=== PATIENT | female | born 1985 | race Caucasian/White ===

== ENCOUNTER 2024-05-18 10:08 | Observation (INO) | payer BC, SELFPAY ==
[2024-05-18] VITALS (42 sets, daily range): BP systolic 94–129; BP diastolic 57–95; PULSE 61–87; RESP 13–20; TEMP 36.4–36.8; O2SAT 89–100; BMI 35.2
--- NOTE | 2024-05-18 10:33 | W.ED.GENAD ---
Discharge Plan Disposition Patient Disposition: Admit to [facility] Condition: Stable Discharge Details Chief Complaint: Abd Prob Clinical Impression: Peptic ulcer disease Attending Provider: Juan Peña Primary Care Provider: Titi Pierson ED Provider: Ponce Cardona Home Meds and New Rx's Prescriptions: No Action omeprazole 20 mg tablet,delayed release (DR/EC) 40 mg PO DAILY ondansetron 4 mg tablet,disintegrating 4 mg PO Q6H acyclovir 400 mg tablet 400 mg PO BID albuterol sulfate 90 mcg/actuation aerosol powdr breath activated 2 inh inhalation Q4H PRN fluticasone propion-salmeterol 232-14 mcg/actuation aero powdr breath act w/sensor 2 inh inhalation BID [id number]-algal oil [Foltanx RF] 3 mg-35 mg-2 mg -90.314 mg capsule 1 cap PO ONCE levalbuterol HCl 1.25 mg/3 mL solution for nebulization 1.25 mg inhalation TID Rx Instructions: for up to 3 doses magnesium oxide 500 mg capsule 500 mg PO DAILY methylphenidate HCl 27 mg tablet extended release 24hr 27 mg PO QAM montelukast [Singulair] 10 mg tablet 10 mg PO DAILY cetirizine [All Day Allergy (cetirizine)] 10 mg tablet 10 mg PO ONCE Ubrelvy 100 mg tablet 100 mg PO ONCE PRN Rx Instructions: as a single dose HPI General Date/Time Provider Initiated Documentation: 05/18/24 10:25. HPI Narrative: 38 year-old female presents to ED today by POV/ambulating with her mother with a chief complaint of continued epigastric/RUQ abdominal pain, sometimes associated with immediate pain after PO intake- seen x2 at [facility] the past [address], had mild anemia HgB in 10's at [facility]. Quality described as epigastric pain, nausea, no radiation to active vomiting, black/bloody stools, coffee-ground emesis, fevers. Severity is described as severe. Palliating factors include had doubled her dose of PPI after her first ER visit days ago. Provoking factors include nothing specific. Events leading up to the incident/Associated Symptoms: Patient denies history of abdominal surgeries. Patient not anticoagulated. Related Data Home Medications ?Medication ?Instructions ?Recorded ?Confirmed acyclovir 400 mg tablet 400 mg PO BID 05/18/24 05/18/24 albuterol sulfate 90 mcg/actuation 2 inh inhalation Q4H PRN 05/18/24 05/18/24 breath activated powder inhaler cetirizine 10 mg tablet (All Day 10 mg PO ONCE 05/18/24 05/18/24 Allergy (cetirizine)) fluticasone 232mcg-salmeterol 2 inh inhalation BID 05/18/24 05/18/24 14mcg/actuation breath act,powder sensor levalbuterol HCl 1.25 mg/3 mL 1.25 mg inhalation TID 05/18/24 05/18/24 solution for nebulization levomefolate Ca 3 mg-B6 35 1 cap PO ONCE 05/18/24 05/18/24 mg-meB12 2 mg-algal oil 90.314 mg capsule (Foltanx RF) magnesium oxide 500 mg capsule 500 mg PO DAILY 05/18/24 05/18/24 methylphenidate HCl 27 mg 27 mg PO QAM 05/18/24 05/18/24 tablet,extended release 24 hr montelukast 10 mg tablet 10 mg PO DAILY 05/18/24 05/18/24 (Singulair) omeprazole 20 mg tablet,delayed 40 mg PO DAILY 05/18/24 05/18/24 release ondansetron 4 mg disintegrating 4 mg PO Q6H 05/18/24 05/18/24 tablet ubrogepant 100 mg tablet (Ubrelvy) 100 mg PO ONCE PRN 05/18/24 05/18/24 Allergies Allergy/AdvReac Type Severity Reaction Status Date / Time No Known Allergies Allergy Unverified 05/18/24 10:24 General Stated Complaint: Abd Prob ALFONSO: 3 Review of Systems All systems reviewed & are unremarkable except as noted in HPI and below Exam Narrative Exam Narrative: GENERAL APPEARANCE: Well-nourished, non-toxic, awake and alert, atraumatic, no acute distress. SKIN: Warm, pink, dry, intact, without rashes/lesions/ulcerations. HEAD: Normocephalic, atraumatic, normal hair distribution for gender/age. EYES: Normal conjunctiva, no exudates on lids/lashes. ENT: Nares patent, no circumoral cyanosis, no facial swelling NECK: Supple, trachea midline, painless cervical ROM. LUNGS/CHEST: Lungs CTA bilaterally-no rhonchi/rales/wheezes diffusely, non-labored respirations, normal A/P diameter, symmetrical expansion, no chest wall deformity HEART (CV/PV): Regular rate and rhythm without murmur, no peripheral edema, no JVD. ABDOMEN: Soft, non-distended, no guarding, epigastric tenderness, right upper quadrant tenderness with Win sign, no Rovsing's, no McBurney's point tenderness, no CVA tenderness percussion bilaterally. MSK: Normal ROM, no swelling/deformity to bilateral UEs or LEs, moving all extremities without weakness, no cyanosis, spine midline without tenderness, normal curvature. NEURO: Mental Status AAOx4 - alert to person, place, time, events No facial droop, no forehead involvement. Motor: No focal weakness - strength 5/5 in bilateral UEs and LEs, proximal and distal, symmetric. Sensory: sensation intact to light touch globally. Gait normal: patient ambulated without ataxia into ED room. PSYCH: euthymic, cooperative, pleasant, appropriate speech Course Vital Signs Vital signs: Vital Signs Temperature 36.5 C 05/18/24 10:20 Pulse 77 05/18/24 10:20 Respiratory Rate 14 05/18/24 10:20 Blood Pressure 113/84 05/18/24 10:20 Pulse Oximetry 99 05/18/24 10:20 Temperature 36.5 C 05/18/24 10:20 Temperature Source Oral 05/18/24 10:20 Pulse 77 05/18/24 10:20 Respiratory Rate 14 05/18/24 10:20 Blood Pressure 113/84 05/18/24 10:20 Blood Pressure Position Sitting 05/18/24 10:20 Pulse Oximetry 99 05/18/24 10:20 Oxygen Delivery Method Room Air 05/18/24 10:20 Oxygen Flow Rate 0 05/18/24 10:20 Pain Level 6 05/18/24 10:20 Medical Decision Making This dictation utilizes [id number] dictation software and may contain unedited grammatical errors. 38 year-old female presents to ED today by POV/ambulating with her mother with a chief complaint of continued epigastric/RUQ abdominal pain, sometimes associated with immediate pain after PO intake- seen x2 at [facility] the past [address], had mild anemia HgB in 10's at [facility]. Quality described as epigastric pain, nausea, no radiation to active vomiting, black/bloody stools, coffee-ground emesis, fevers. Severity is described as severe. Palliating factors include had doubled her dose of PPI after her first ER visit days ago. Provoking factors include nothing specific. Events leading up to the incident/Associated Symptoms: Patient denies history of abdominal surgeries. Patients' medical history: Noncontributory. Family and social history: States family history of cholecystectomy, otherwise noncontributory Pertinent exam findings / vital signs include epigastric tenderness, right upper quadrant tenderness, no Rovsing's, no McBurney's point tenderness, positive Win sign, benign cardiopulmonary status, nontoxic and afebrile. Differential / pathologies of concern include gastritis, peptic ulcer disease, pancreatitis, cholecystitis, GI bleeding, renal colic. Diagnostic studies of: -CBC, CMP, magnesium, lipase, troponin, UA, ultrasound of the right upper quadrant and renal study. -CBC shows worsening anemia, was 10 at [facility] yesterday now 9.6, recheck after 1 L fluid shows 8.1 likely GI bleeding -CMP has no actionable abnormality -Lipase within normal limits -Troponin negative -UA unremarkable -US shows no gallstones, shows 3-4mm kidney stone nonobstructing Interventions of: -IV Tylenol, Toradol, ondansetron, 40 mg IV Protonix, 1 dose of 4 mg morphine. ED Course/Assessment/Plan: 38-year-old female presents with epigastric pain ongoing for few days, states it is severe and sometimes associated with eating. She does have noted anemia yesterday at [facility] which is worsening today and after a recheck after IV fluid bolus drops 1.5 g indicating likely GI bleeding, or presentation is consistent with peptic ulcer disease, I did speak with surgery on-call Dr. Peña who accepted the patient for admission at 1400 hrs and we will EGD her today. Disposition of Peptic Ulcer Disease. Patient verbalized understanding of the plan and return to ED criteria and engaged in shared decision making. Medical Records Medical records reviewed: Yes I reviewed the patient's medical records. Imaging Data Radiologic Study: Attestation: I personally reviewed and interpreted this imaging study as follows: Imaging: Ultrasound Radiologist's impression: EXAM: US ABDOMEN RENAL CLINICAL HISTORY: RUQ tenderness; gall vs renal colic TECHNIQUE: Ultrasound of complete upper abdomen performed using standard protocol. COMPARISON: No exams were available for comparison FINDINGS: There is no ascites evident. LIVER: Liver is mildly echogenic indicating mild hepatic steatosis. There no discrete focal hepatic lesions evident. GALLBLADDER/BILIARY: There are no gallstones. No gallbladder wall edema nor pericholecystic fluid. The common hepatic duct isnot dilated, measuring 3-4mm at the level of carlota hepatis. PANCREAS: There is no evidence of pancreatic mass nor dilatation of the pancreatic duct. SPLEEN: The spleen is not enlarged and there are no intrasplenic lesions evident. KIDNEYS:Kidneys exhibit normal size with no evidence of solid mass, or cyst. There is a 3-4 mm echogenic focus at the mid aspect of the right kidney which is probably a small nonobstructive calculus.. There is no hydronephrosis. ABDOMINAL AORTA: There is no evidence of abdominal aortic aneurysm. IVC: Normal diameter where visualized. IMPRESSION: 1. No evidence of cholelithiasis nor dilatation of the biliary tree. 2. There is a 3 millimeter hyperechoic focus in the midpole level of the right kidney which is probably a nonobstructive small calculus at this level. 3. There is no ascites. Lab Data Lab results reviewed: Yes I reviewed the patient's lab results. Labs: Laboratory Tests Range/Units 05/18/24 05/18/24 05/18/24 10:40 11:25 13:25 WBC (4.4-10.8) 10^3/uL 8.48 RBC (3.93-5.22) 10^6/uL 4.78 Hgb (11.2-15.7) g/dL 9.6 L 8.1 L Hct (36.0-46.0) % 33.5 L 27.9 L MCV (80-95) fL 70 L MCH (27.0-33.0) pg 20.1 L MCHC (32.0-36.0) % 28.7 L RDW (11.7-14.6) % 17.7 H Plt Count (130-400) 10^3/uL 321 MPV (8.0-11.0) fL 10.4 Immature Gran % % 0.4 Neutrophils % % 73.8 Lymphocytes % % 19.9 Monocytes % % 5.0 Eosinophils % % 0.5 Basophils % % 0.4 Nucleated RBC % (0.0-0.3) % 0.0 Absolute Neutrophils (1.2-6.7) 10^3/uL 6.27 Absolute Lymphocytes (1.2-3.4) 10^3/uL 1.69 Absolute Monocytes (0.1-0.8) 10^3/uL 0.42 Absolute Eosinophils (0.0-0.7) 10^3/uL 0.04 Absolute Basophils (0.0-0.2) 10^3/uL 0.03 RBC Morphology See Below Poikilocytosis 1+ Microcytosis 2+ Sodium (136-145) mmol/L 140 Potassium (3.5-5.1) mmol/L 3.9 Chloride (98-107) mmol/L 105 Carbon Dioxide (21.0-32.0) mmol/L 26.3 Anion Gap (3-11) mmol/L 8.7 BUN (7-18) mg/dL 12 Creatinine (0.55-1.02) mg/dL 0.8 Est GFR (CKD-EPI 2020) (mL/min/1.73m2) 96.66 Glucose (74-106) mg/dL 94 Calcium (8.5-10.1) mg/dL 9.2 Magnesium (1.8-2.4) mg/dL 2.1 Total Bilirubin (0.2-1.0) mg/dL 0.31 AST (15-37) U/L 17 ALT (14-59) U/L 26 Alkaline Phosphatase (46-116) U/L 88 Troponin I (<or=51) ng/L < 4 Total Protein (6.4-8.2) g/dL 8.4 H Albumin (3.4-5.0) g/dL 4.2 Lipase (<78) U/L 38 Urine Color (Yellow) Yellow Urine Clarity (Clear) Clear Urine pH (5-8) 5.5 Ur Specific [place] (1.005-1.025) >= 1.030 H Urine Protein (Neg-Trace) mg/dL Negative Urine Ketones (Negative) mg/dL Negative Urine Blood (Negative) Negative Urine Nitrite (Negative) Negative Urine Bilirubin (Negative) Negative Urine Urobilinogen (Up to 0.2) mg/dL 0.2 Ur Leukocyte Esterase (Negative) Negative Urine Glucose (Negative) mg/dL Negative Quality:SDOH Health Related Social Needs: No Data to Display PFSH All Active Problems (Updated 05/18/24 @ 15:02 by MARLEE Atkinson) Peptic ulcer disease (Chronic) Social History Smoking/Tobacco Use Status: Never Smoking risk assessment performed?: Yes Alcohol Intake: never Drug use: Never Substance use type: does not use Housing: house Do you feel safe at home: Yes Do you feel safe in your relationship?: Yes
--- NOTE | 2024-05-18 10:45 | DI.US_ITS ---
Exam(s) US ABDOMEN RENAL EXAM: US ABDOMEN RENAL CLINICAL HISTORY: RUQ tenderness; gall vs renal colic TECHNIQUE: Ultrasound of complete upper abdomen performed using standard protocol. COMPARISON: No exams were available for comparison FINDINGS: There is no ascites evident. LIVER: Liver is mildly echogenic indicating mild hepatic steatosis. There no discrete focal hepatic lesions evident. GALLBLADDER/BILIARY: There are no gallstones. No gallbladder wall edema nor pericholecystic fluid. The common hepatic duct isnot dilated, measuring 3-4mm at the level of carlota hepatis. PANCREAS: There is no evidence of pancreatic mass nor dilatation of the pancreatic duct. SPLEEN: The spleen is not enlarged and there are no intrasplenic lesions evident. KIDNEYS:Kidneys exhibit normal size with no evidence of solid mass, or cyst. There is a 3-4 mm echog enic focus at the mid aspect of the right kidney which is probably a small nonobstructive calculus.. There is no hydronephrosis. ABDOMINAL AORTA: There is no evidence of abdominal aortic aneurysm. IVC: Normal diameter where visualized. IMPRESSION: 1. No evidence of cholelithiasis nor dilatation of the biliary tree. 2. There is a 3 millimeter hyperechoic focus in the midpole level of the right kidney which is proba kimber a nonobstructive small calculus at this level. 3. There is no ascites. DATA REPOSITORY:
[2024-05-18 11:26] LABS: Bilirubin Negative (Negative); Blood Negative (Negative); Clarity Clear (Clear); Glucose Negative (Negative); Ketones Negative (Negative); Leukocyte Esterase Negative (Negative); Nitrite Negative (Negative); Specific Gravity >= 1.030 (1.005-1.025); Urobilinogen 0.2 mg/dL (Up to 0.2); pH 5.5 (5-8)
[2024-05-18] MEDS: Ondansetron 4 MG/2 ML VIAL IVP (11:31)
[2024-05-18] MEDS: Pantoprazole 40 MG VIAL IVP ×2 (11:32→18:13)
[2024-05-18] MEDS: Ketorolac 15 MG/ML VIAL IVP (11:32)
[2024-05-18 11:38] LABS: Abs Immature Grans 0.03 10^3/uL (0.0-0.06); Absolute Basophil Count 0.03 10^3/uL (0.0-0.2); Absolute Eosinophil Count 0.04 10^3/uL (0.0-0.7); Absolute Lymphocyte Count 1.69 10^3/uL (1.2-3.4); Absolute Monocyte Count 0.42 10^3/uL (0.1-0.8); Absolute Neutrophil Count 6.27 10^3/uL (1.2-6.7); Basophils % 0.4 %; Eosinophils % 0.5 %; HCT 33.5 % (36.0-46.0); HGB 9.6 g/dL (11.2-15.7); Immature Grans % 0.4 %; Lymphocytes % 19.9 %; MCH 20.1 pg (27.0-33.0); MCHC 28.7 % (32.0-36.0); MCV 70 fL (80-95); MPV 10.4 fL (8.0-11.0); Neutrophils % 73.8 %; Platelet Count 321 10^3/uL (130-400); RBC 4.78 10^6/uL (3.93-5.22); RDW 17.7 % (11.7-14.6); RDW-SD 44.7 fL; WBC 8.48 10^3/uL (4.4-10.8)
[2024-05-18] MEDS: ACETAMINOPHEN 1,000 MG/100 ML BAG 400 MG IVPB (11:38)
[2024-05-18 11:54] LABS: ALT 26 U/L (14-59); AST 17 U/L (15-37); Albumin 4.2 g/dL (3.4-5.0); Alkaline Phosphatase 88 U/L (46-116); Anion Gap 8.7 mmol/L (3-11); BUN 12 mg/dL (7-18); Bilirubin, Total 0.31 mg/dL (0.2-1.0); CO2 26.3 mmol/L (21.0-32.0); CREATININE 0.8 mg/dL (0.55-1.02); Calcium 9.2 mg/dL (8.5-10.1); Chloride 105 mmol/L (98-107); Estimated GFR 96.66 (mL/min/1.73m2); Glucose 94 mg/dL (74-106); Lipase 38 U/L (<78); Magnesium 2.1 mg/dL (1.8-2.4); Potassium 3.9 mmol/L (3.5-5.1); Sodium 140 mmol/L (136-145); Total Protein 8.4 g/dL (6.4-8.2)
[2024-05-18 11:55] LABS: Troponin I < 4 ng/L (<or=51)
[2024-05-18 12:07] LABS: Diff Comment RBC Morph Reviewed; Microcytosis 2+; Poikilocytes 1+
[2024-05-18] MEDS: Normal Saline 1,000 ML 1000 ML IV (12:24)
[2024-05-18 13:29] LABS: HCT 27.9 % (36.0-46.0); HGB 8.1 g/dL (11.2-15.7)
--- NOTE | 2024-05-18 14:18 | W.PM.HP.N ---
Date of service: 05/18/24 Time of Service: 14:18 Assessment and Plan Assessment and plan (1) Peptic ulcer disease: Status: Chronic Assessment and plan: In light of her symptoms of midepigastric pain, and back pain, coinciding with a decreasing hemoglobin, I think peptic ulcer disease and gastritis are very likely here. We talked about typical management approaches to that, which would include proton pump inhibitor therapy, will up with the following hemoglobin I think EGD to rule out any active bleeding ulcer is very reasonable. We talked about the risks and benefits of the procedure, and the intent to diagnose, and hopefully treat bleeding peptic ulcer with clips or injections. I think Jodee has a very good understanding of the nature of the procedure and the risks. She is able to provide informed consent today, and we will work to arrange this in an urgent fashion. History of Present Illness History of Present Illness Chief Complaint: Midepigastric abdominal pain Narrative: Jodee is 38 years old. She comes to the emergency department today with increasing midepigastric and back pain. She was actually seen in the emergency department at [facility] on the and the with similar symptoms, although less intense at that time. She underwent a CT scan that demonstrated some mesenteric adenitis, and some possible colitis, but was otherwise negative. Her hemoglobin during her first ER visit was about 10-1/2. It decreased about a gram by her second visit, and in the emergency department here today, the hemoglobin is 8.1. She denies any melena or hematochezia. She has had some nausea and vomiting but no hematemesis. She has longstanding GERD symptoms, and has actually undergone EGD and colonoscopy in the past. To the best of her knowledge they may have had some polyps, but otherwise were normal. She is maintained on 20 mg of omeprazole on a usual basis, which she did double that dose at the recommendation of [facility] emergency department. That has not helped her symptoms. She has multiple sick contacts over the past few weeks, including a daughter with pinworms, and what sounds like a few family members with nonspecific gastroenteritis. Past surgical history significant for section. She tells me she has a family history of malignant hyperthermia, and colon cancer. She has never had any complications with anesthesia herself. Review of Systems Constitutional Constitutional: Reports fatigue, Denies fever(s) and Reports poor appetite Eyes Eyes: Reports system reviewed and no additional complaints, except as documented ENT Ears, Nose, Mouth, and Throat: Reports system reviewed and no additional complaints, except as documented Cardiovascular Cardiovascular: Denies chest pain Respiratory Respiratory: Denies chest congestion and Denies cough Gastrointestinal Gastrointestinal: Reports abdominal pain, Reports change in stool character, Reports cramping, Reports dyspepsia, Reports nausea and Reports vomiting Genitourinary Genitourinary: Reports system reviewed and no additional complaints, except as documented Musculoskeletal Musculoskeletal: Reports back pain Endocrine Endocrine: Reports fatigue Hematologic/Lymphatic Hematologic/Lymphatic: Denies easy bleeding and Denies easy bruising PFSH All Active Problems (Updated 05/18/24 @ 15:02 by MARLEE Atkinson) Peptic ulcer disease (Chronic) Social History Smoking/Tobacco Use Status: Never Smoking risk assessment performed?: Yes Alcohol Intake: never Drug use: Never Substance use type: does not use Housing: house Do you feel safe at home: Yes Do you feel safe in your relationship?: Yes Meds Allergies and Home Medications Allergies Allergy/AdvReac Type Severity Reaction Status Date / Time No Known Allergies Allergy Unverified 05/18/24 10:24 Home Medications ?Medication ?Instructions ?Recorded ?Confirmed ?Type acyclovir 400 mg tablet 400 mg PO BID 05/18/24 05/18/24 History albuterol sulfate 90 mcg/actuation 2 inh inhalation Q4H PRN 05/18/24 05/18/24 History breath activated powder inhaler cetirizine 10 mg tablet (All Day 10 mg PO ONCE 05/18/24 05/18/24 History Allergy (cetirizine)) fluticasone 232mcg-salmeterol 2 inh inhalation BID 05/18/24 05/18/24 History 14mcg/actuation breath act,powder sensor levalbuterol HCl 1.25 mg/3 mL 1.25 mg inhalation TID 05/18/24 05/18/24 History solution for nebulization levomefolate Ca 3 mg-B6 35 1 cap PO ONCE 05/18/24 05/18/24 History mg-meB12 2 mg-algal oil 90.314 mg capsule (Foltanx RF) magnesium oxide 500 mg capsule 500 mg PO DAILY 05/18/24 05/18/24 History methylphenidate HCl 27 mg 27 mg PO QAM 05/18/24 05/18/24 History tablet,extended release 24 hr montelukast 10 mg tablet 10 mg PO DAILY 05/18/24 05/18/24 History (Singulair) omeprazole 20 mg tablet,delayed 40 mg PO DAILY 05/18/24 05/18/24 History release ondansetron 4 mg disintegrating 4 mg PO Q6H 05/18/24 05/18/24 History tablet ubrogepant 100 mg tablet (Ubrelvy) 100 mg PO ONCE PRN 05/18/24 05/18/24 History Exam Const General: cooperative and comfortable Orientation: alert, awake and oriented x3 HENMT Head: normal to inspection Neck Neck: normal visual inspection, full ROM and no lymphadenopathy Resp Effort & Inspection: no cough Auscultation: clear to auscultation bilaterally Cardio Rate: regular rate Rhythm: regular rhythm Heart Sounds: S1 normal and S2 normal GI Inspection: normal to inspection Palpation: soft, no guarding, no hernias, no masses and tender (Midepigastric) Results Labs 05/18/24 13:25 05/18/24 11:25 Labs: Laboratory Results - last 24 hr 05/18/24 05/18/24 05/18/24 10:40 11:25 13:25 WBC 8.48 RBC 4.78 Hgb 9.6 L 8.1 L Hct 33.5 L 27.9 L MCV 70 L MCH 20.1 L MCHC 28.7 L RDW 17.7 H Plt Count 321 MPV 10.4 Immature Gran % 0.4 Neutrophils % 73.8 Lymphocytes % 19.9 Monocytes % 5.0 Eosinophils % 0.5 Basophils % 0.4 Nucleated RBC % 0.0 Absolute Neutrophils 6.27 Absolute Lymphocytes 1.69 Absolute Monocytes 0.42 Absolute Eosinophils 0.04 Absolute Basophils 0.03 RBC Morphology See Below Poikilocytosis 1+ Microcytosis 2+ Sodium 140 Potassium 3.9 Chloride 105 Carbon Dioxide 26.3 Anion Gap 8.7 BUN 12 Creatinine 0.8 Est GFR (CKD-EPI 2020) 96.66 Glucose 94 Calcium 9.2 Magnesium 2.1 Total Bilirubin 0.31 AST 17 ALT 26 Alkaline Phosphatase 88 Troponin I < 4 Total Protein 8.4 H Albumin 4.2 Lipase 38 Urine Color Yellow Urine Clarity Clear Urine pH 5.5 Ur Specific [place] >= 1.030 H Urine Protein Negative Urine Ketones Negative Urine Blood Negative Urine Nitrite Negative Urine Bilirubin Negative Urine Urobilinogen 0.2 Ur Leukocyte Esterase Negative Urine Glucose Negative Last Vital Signs Temp 97.7 F 05/18/24 10:20 Pulse 70 05/18/24 13:40 Resp 14 05/18/24 10:20 BP 129/85 05/18/24 13:30 Pulse Ox 100 05/18/24 13:40 Time Spent Time spent with Patient: 40-54 minutes Time was spent: preparing to see the patient(eg.review tests), ordering medications,tests, procedures, referring, communicating with other health childcare director, indepentently interpreting results, counseling the patient and care coordination
--- NOTE | 2024-05-18 14:32 | ANES.PREOP_ITS ---
General Info Date of Service Date Performed: 05/18/24 Height: 5 ft 4 in Weight: 92.986 kg Body Mass Index (BMI): 35.2 Meds Allergies and Home Medications Allergies Allergy/AdvReac Type Severity Reaction Status Date / Time No Known Allergies Allergy Unverified 05/18/24 10:24 Home Medication ?Medication ?Instructions ?Recorded acyclovir 400 mg tablet 400 mg PO BID 05/18/24 albuterol sulfate 90 mcg/actuation 2 inh inhalation Q4H PRN 05/18/24 breath activated powder inhaler cetirizine 10 mg tablet (All Day 10 mg PO ONCE 05/18/24 Allergy (cetirizine)) fluticasone 232mcg-salmeterol 2 inh inhalation BID 05/18/24 14mcg/actuation breath act,powder sensor levalbuterol HCl 1.25 mg/3 mL 1.25 mg inhalation TID 05/18/24 solution for nebulization levomefolate Ca 3 mg-B6 35 1 cap PO ONCE 05/18/24 mg-meB12 2 mg-algal oil 90.314 mg capsule (Foltanx RF) magnesium oxide 500 mg capsule 500 mg PO DAILY 05/18/24 methylphenidate HCl 27 mg 27 mg PO QAM 05/18/24 tablet,extended release 24 hr montelukast 10 mg tablet 10 mg PO DAILY 05/18/24 (Singulair) omeprazole 20 mg tablet,delayed 40 mg PO DAILY 05/18/24 release ondansetron 4 mg disintegrating 4 mg PO Q6H 05/18/24 tablet ubrogepant 100 mg tablet (Ubrelvy) 100 mg PO ONCE PRN 05/18/24 PFSH Active Problems Active Problems: Problem Status Onset Code Peptic ulcer disease Chronic K27.9 Tobacco Smoking/Tobacco Use Status: Never Alcohol Alcohol Intake: never Substance Use Substance use: Never Substance use type: does not use Vital Signs and Lab Results Vital Signs Most Recent Vital Signs in EMR: Most Recent Vital Signs Temp Pulse Resp BP Pulse Ox 36.5 C 70 14 129/85 100 05/18/24 10:20 05/18/24 13:40 05/18/24 10:20 05/18/24 13:30 05/18/24 13:40 Lab Results 05/18/24 13:25 05/18/24 11:25 Blood Type / Crossmatch: 2 No Data to Display Complete Blood Count: 2 White Blood Count 8.48 10^3/uL (4.4-10.8) 05/18/24 11:25 Red Blood Count 4.78 10^6/uL (3.93-5.22) 05/18/24 11:25 Hemoglobin 8.1 g/dL (11.2-15.7) L 05/18/24 13:25 Hematocrit 27.9 % (36.0-46.0) L 05/18/24 13:25 Platelet Count 321 10^3/uL (130-400) 05/18/24 11:25 Complete Metabolic Panel: 2 Sodium 140 mmol/L (136-145) 05/18/24 11:25 Potassium 3.9 mmol/L (3.5-5.1) 05/18/24 11:25 Chloride 105 mmol/L (98-107) 05/18/24 11:25 Carbon Dioxide 26.3 mmol/L (21.0-32.0) 05/18/24 11:25 BUN 12 mg/dL (7-18) 05/18/24 11:25 Creatinine 0.8 mg/dL (0.55-1.02) 05/18/24 11:25 Est GFR (CKD-EPI 2020) 96.66 (mL/min/1.73m2) 05/18/24 11:25 Magnesium 2.1 mg/dL (1.8-2.4) 05/18/24 11:25 Calcium 9.2 mg/dL (8.5-10.1) 05/18/24 11:25 Albumin 4.2 g/dL (3.4-5.0) 05/18/24 11:25 Glucose 94 mg/dL (74-106) 05/18/24 11:25 Liver Function Panel: 2 Alanine Aminotransferase (ALT/SGPT) 26 U/L (14-59) 05/18/24 11: 25 Aspartate Amino Transf (AST/SGOT) 17 U/L (15-37) 05/18/24 11:25 Coagulation Panel: 2 No Data to Display Cardiac Panel: 2 Troponin I < 4 ng/L (<or=51) 05/18/24 Arterial Blood Gas: 2 No Data to Display Venous Blood Gas: 2 No Data to Display Pancreas Panel: 2 Lipase 38 U/L (<78) 05/18/24 11:25 Thyroid Panel: 2 No Data to Display Infectious Disease: 2 No Data to Display Blood Cultures: 2 No Data to Display Toxicology Panel: 2 No Data to Display Panel: 2 No Data to Display Anesthesia Assessment and Plan Anesthesia History Personal History: No History of Anesthesia Complications Family History: Malignant Hyperthermia (Grandmother and Grandmother's sister has MH) Exercise Tolerance Exercise Tolerance: Metabolic Equivalents>4 Pertinent Negatives Pertinent Negatives: Other ((+) GERD with Rx treatment) Cardiac & Pulmonary Exam Cardiac Exam: Normal S1/S2 Heart Sounds Pulmonary Exam: Clear Bilateral Breath Sounds Implantable Cardiac Device Does patient have a Pacemaker or an ICD?: No Airway Exam Known Difficult Airway: No Mallampati Class: 2 Mouth Opening: Normal (> 3cm) Thyromental Distance: Greater than 3 cm Neck Range of Motion: Full ROM Neck Circumference: Normal Teeth Condition: Normal Dentition ASA Classification ASA Score: ASA 2 Emergency Case?: No NPO Status NPO Status: NPO Clears >2 hours, Solids >8 hours Status Status: Other (Tubes tied X5 years) Anesthesia Plan Resuscitation Status: Full Code Anesthesia Technique: General Anesthesia Airway Planned: Natural Airway Monitors Used: Standard Monitors
[2024-05-18] MEDS: Lactated Ringers 1,000 ML 75 ML IV (15:00)
--- NOTE | 2024-05-18 15:50 | W.PM.ENDDOP ---
Date of service: 05/18/24 Time of Service: 15:50 Endoscopy Report DATE OF PROCEDURE: 05/18/24 PRE-OP DIAGNOSIS: Peptic ulcer disease POST-OP DIAGNOSIS: same PROCEDURE: EGD with clipping of gastric ulcer SURGEON: Juan Peña ANESTHESIA TYPE: General:No Airway PATHOLOGY: none sent COMPLICATIONS: None DISPOSITION: PACU INDICATIONS: Jodee is a 38-year-old woman with gastroesophageal reflux disease who presents with progressive dyspepsia midepigastric pain that radiates to her back, with an associated drop in her hemoglobin consistent with bleeding peptic ulcer disease PROCEDURE START TIME: 15:06 PROCEDURE END TIME: 15:15 FINDINGS: Less than 1 cm flat bleeding gastric ulcer along the greater curvature in the gastric body PROCEDURE DESCRIPTION: After the initiation of monitored anesthetic care, and with the assistance of a bite block, I advanced a standard gastroscope through the mouth past the hypopharynx and into the esophagus.? Under the direct vision of the scope, I advanced down the esophagus towards the stomach.? The upper, mid, and lower esophagus were all normal and healthy appearing. The Z-line was regular and the GE junction measured 35 cm from the incisors. I advanced the camera down into the stomach and insufflated into the rugae were obliterated. There are multiple fundic gland polyps. Most notably, however, there is a less than 0.5 cm flat bleeding gastric ulcer. This is on the greater curvature along the gastric fundus, slightly towards the cardia. This was irrigated clean. There was some active bleeding, although no visible vessel was appreciated. Narrowband imaging was used to assist with the analysis. Clinical features appeared consistent with simple gastric ulcer, as opposed to malignancy. I performed retroflexion, and the gastric cardia was totally clean. I did not see any signs of hiatal hernia. I straightened the camera, and advanced down around the incisura angularis to the warts the pylorus. The gastric antrum was normal and healthy, and I saw no evidence of any inflammation. I was able to traverse the pylorus with ease into the duodenum. Duodenal file were obvious, and healthy appearing. I saw no evidence of any blood anywhere within the duodenum. I advanced down to the second portion of the duodenum, and saw no signs of any duodenitis or features consistent with bleeding duodenal ulcers. I then brought the camera back up to the stomach. Again, the previously mentioned ulcer was examined. It was repeatedly irrigated, with a slow steady ooze. I placed 2 resolution 360 clips on each side of the ulcer, and irrigated clean. I saw no evidence of any ongoing bleeding. I then emptied the stomach, and brought the camera out along the length of the esophagus 1 last time. No other abnormalities were appreciated. Jodee was allowed awaken from the anesthetic, and transferred to the recovery unit.
--- NOTE | 2024-05-18 16:36 | W.ANESPOSTOP ---
Postoperative Evaluation Date, Time and Location Date Performed: 05/18/24 Time Performed: 16:36 Patient Location: Med/Surg Vital Signs Most Recent Imported Vital Signs: Most Recent Vital Signs Temp Pulse Resp BP Pulse Ox 36.7 C 70 20 98/66 L 100 05/18/24 16:05 05/18/24 16:15 05/18/24 16:15 05/18/24 16:15 05/18/24 16:15 Pain Score Most Recent Pain Score: Most Recent Pain Score Pain Level 0 05/18/24 16:05 Assessment Mental Status: Awake (Alert & Oriented to Patient Baseline) Airway and Respiratory Function: Patent airway with normal (patient baseline) respiratory exam Cardiovascular Function: Hemodynamically Stable Hydration Status: Adequately Hydrated Nausea & Vomiting: No Nausea or Vomiting Pain: Pt. Denies Any Pain Peripheral Nerve Block: Patient did not receive a nerve block
[2024-05-18] MEDS: Normal Saline Flush 10 ML SYR IVP ×2 (18:14→19:53)
--- NOTE | 2024-05-18 19:30 | W.PC.ACHO ---
Registration Status: Primary Language: Preferred Language: ED Information & Data Chief Complaint Abd Prob 05/18/24 10:42 Chief Complaint Abd Prob 05/18/24 10:33 Triage Note Severe upper abd pain 05/18/24 10:20 radiating to back, sx started Thursday. Bilateral sided back pain. No fever or chills. Has been to the hospital twice. Severe diarrhea. Most Recent Vital Signs Temperature 36.7 C 05/18/24 16:38 Temperature Source Temporal Artery Scan 05/18/24 16:38 Pulse 66 05/18/24 16:38 Pulse 71 05/18/24 16:15 Respiratory Rate 19 05/18/24 16:38 Blood Pressure 99/70 L 05/18/24 16:38 Blood Pressure Mean 74 05/18/24 16:15 Blood Pressure Position Sitting 05/18/24 10:20 Pulse Oximetry 100 05/18/24 16:38 Respiratory End-tidal CO2 34 05/18/24 16:15 Oxygen Delivery Method Room Air 05/18/24 16:38 Oxygen Flow Rate 0 05/18/24 16:38 Pain Level 0 05/18/24 16:05 Allergies No Known Allergies Allergy (Unverified 05/18/24 10:24) Precautions Isolation Standard precaution 05/18/24 10:42 Active Medications Generic Name Dose Route Start Last Admin Trade Name Freq PRN Reason Stop Dose Admin Pantoprazole Sodium 40 mg 05/18/24 17:30 05/18/24 18:13 Pantoprazole 40 Mg Vial IVP 40 mg DAILY ADWOA Administration Sodium Chloride 0 ml 05/18/24 16:37 05/18/24 18:14 Normal Saline Flush 10 Ml Syr IVP 10 ml PRN PRN Administration IV IV Catheter Type [Right Peripheral IV Antecubital] IV Catheter Gauge [Right 18 Antecubital] Diet Orders Category Date Time Status Regular/Normal [DIET] Nutrition 05/18/24 Dinner Active Diagnostics 05/18/24 05/18/24 05/18/24 Range/Units 13:25 11:25 10:40 WBC 8.48 (4.4-10.8) 10^3/uL RBC 4.78 (3.93-5.22) 10^6/uL Hgb 8.1 L 9.6 L (11.2-15.7) g/dL Hct 27.9 L 33.5 L (36.0-46.0) % MCV 70 L (80-95) fL MCH 20.1 L (27.0-33.0) pg MCHC 28.7 L (32.0-36.0) % RDW 17.7 H (11.7-14.6) % Plt Count 321 (130-400) 10^3/uL MPV 10.4 (8.0-11.0) fL Immature Gran % 0.4 % Neutrophils % 73.8 % Lymphocytes % 19.9 % Monocytes % 5.0 % Eosinophils % 0.5 % Basophils % 0.4 % Nucleated RBC % 0.0 (0.0-0.3) % Absolute Neutrophils 6.27 (1.2-6.7) 10^3/uL Absolute Lymphocytes 1.69 (1.2-3.4) 10^3/uL Absolute Monocytes 0.42 (0.1-0.8) 10^3/uL Absolute Eosinophils 0.04 (0.0-0.7) 10^3/uL Absolute Basophils 0.03 (0.0-0.2) 10^3/uL RBC Morphology See Below Poikilocytosis 1+ Microcytosis 2+ Sodium 140 (136-145) mmol/L Potassium 3.9 (3.5-5.1) mmol/L Chloride 105 (98-107) mmol/L Carbon Dioxide 26.3 (21.0-32.0) mmol/L Anion Gap 8.7 (3-11) mmol/L BUN 12 (7-18) mg/dL Creatinine 0.8 (0.55-1.02) mg/dL Est GFR (CKD-EPI 2020) 96.66 (mL/min/1.73m2) Glucose 94 (74-106) mg/dL Calcium 9.2 (8.5-10.1) mg/dL Magnesium 2.1 (1.8-2.4) mg/dL Total Bilirubin 0.31 (0.2-1.0) mg/dL AST 17 (15-37) U/L ALT 26 (14-59) U/L Alkaline Phosphatase 88 (46-116) U/L Troponin I < 4 (<or=51) ng/L Total Protein 8.4 H (6.4-8.2) g/dL Albumin 4.2 (3.4-5.0) g/dL Lipase 38 (<78) U/L Urine Color Yellow (Yellow) Urine Clarity Clear (Clear) Urine pH 5.5 (5-8) Ur Specific [place] >= 1.030 H (1.005-1.025) Urine Protein Negative (Neg-Trace) mg/dL Urine Ketones Negative (Negative) mg/dL Urine Blood Negative (Negative) Urine Nitrite Negative (Negative) Urine Bilirubin Negative (Negative) Urine Urobilinogen 0.2 (Up to 0.2) mg/dL Ur Leukocyte Esterase Negative (Negative) Urine Glucose Negative (Negative) mg/dL Intake and Output - 24 Hour Total 05/18/24 10:08 thru 05/18/24 18:14 Intake Total 2099 Balance 2099 Weight 92.986 kg Intake: IV 2099 Other: Emesis Description None Falls Risk Assessment History of Falls No History 05/18/24 10:42 Contributing Factors No Factors 05/18/24 10:42 Ambulatory Aids Independent 05/18/24 10:42 Tubes/Lines W/no contributing factors 05/18/24 10:42 Gait Evaluation No gait disturbance 05/18/24 10:42 Cognition No cognitive impairment 05/18/24 10:42 Fall Total Score 10 05/18/24 10:42 Level of Risk Standard/Low Risk 05/18/24 10:42 Problems Peptic ulcer disease (Chronic) v v v v v v v v v Sending and/or Receiving Nurses: Please use comment section below to note any information pertinent to the patient hand-off not included above. Information / Comments: pt recieved to MED/Surg room 227, bedside report given Report received from: Rosa Elizabeth RN
[2024-05-18] MEDS: Acyclovir 400 MG TAB PO (19:53)
[2024-05-18] MEDS: Acetaminophen 500 MG TAB 1000 MG PO (19:53)
[2024-05-18] MEDS: Budesonide/Formoterol 160/4.5 6 GM 60 PUFF INH IH (20:40)
[2024-05-19] MEDS: Acetaminophen 500 MG TAB 1000 MG PO (04:41)
[2024-05-19] MEDS: Normal Saline Flush 10 ML SYR IVP (04:41)
[2024-05-19 07:05] LABS: HGB 8.3 g/dL (11.2-15.7)
[2024-05-19 07:30] VITALS: BP 100/62; PULSE 73; RESP 16; TEMP 36.4; O2SAT 98
--- NOTE | 2024-05-19 08:20 | W.PM.DS.N ---
Date of service: 05/19/24 Time of Service: 08:20 DS: Diagnosis Discharge Diagnosis (1) Peptic ulcer disease: Status: Chronic Asessment and Plan: Chronic gastritis/peptic ulcer disease with bleeding ulcer found on upper endoscopy 05/18/2024. No biopsy was taken but fecal H. pylori antigen was obtained the morning of discharge. Patient had clipping of the bleeding ulcer. Plan is to discharge on a regular diet and Protonix twice daily. Follow-up in surgical office to check on symptoms and reduce the dose in 2 weeks. Discharge Plan Disposition Patient Disposition: Home Condition: Good Discharge Details Reason For Visit: Bleeding peptic ulcer disease Admit Date/Time: 05/18/24 15:46 Admit Provider: Juan Peña Attending Provider: Juan Peña Primary Care Provider: Titi Pierson Hospital Course Hospital Course: Patient was admitted, taken to endoscopy unit for upper endoscopy with clipping of bleeding ulcer. Patient was stable for discharge the following day having obtained a stool sample for H. pylori antigen. Home Meds and New Rx's Prescriptions: New acetaminophen 500 mg Tablet 1,000 mg PO Q8H Qty: 30 0RF pantoprazole [Protonix] 40 mg tablet,delayed release (DR/EC) 40 mg PO BID Qty: 60 1RF Continued ondansetron 4 mg tablet,disintegrating 4 mg PO Q6H acyclovir 400 mg tablet 400 mg PO BID albuterol sulfate 90 mcg/actuation aerosol powdr breath activated 2 inh inhalation Q4H PRN fluticasone propion-salmeterol 232-14 mcg/actuation aero powdr breath act w/sensor 2 inh inhalation BID [id number] oil [Foltanx RF] 3 mg-35 mg-2 mg -90.314 mg capsule 1 cap PO ONCE levalbuterol HCl 1.25 mg/3 mL solution for nebulization 1.25 mg inhalation TID Rx Instructions: for up to 3 doses magnesium oxide 500 mg capsule 500 mg PO DAILY methylphenidate HCl 27 mg tablet extended release 24hr 27 mg PO QAM montelukast [Singulair] 10 mg tablet 10 mg PO DAILY cetirizine [All Day Allergy (cetirizine)] 10 mg tablet 10 mg PO ONCE Ubrelvy 100 mg tablet 100 mg PO ONCE PRN Rx Instructions: as a single dose Discontinued omeprazole 20 mg tablet,delayed release (DR/EC) 40 mg PO DAILY Discharge Instructions Additional Instructions: Advance your diet as you tolerate. You will be contacted with results of the H. pylori test and if it is positive you will be put on a course of antibiotics. You should take the Protonix 2 times a day for 2 weeks or until seen in the office in follow-up. When you are seen in follow-up, your dose will be decreased to 1 time daily. Anticipate that a follow-up endoscopy in approximately 8 weeks will be recommended. Referrals: Juan Peña MD [ [facility]YSICIAN] - (2 weeks) Activity:: Activity as Tolerated Equipment/Supplies:: No Equipment Needed Diet:: As Tolerated Discharge Orders Discharge Orders: Discharge Order (Routine); Ordered 05/19/24 Ordered By: Za Lee DS: Summary Time Spent with Patient providing and/or coordinating discharge services: Less than 30 minutes Status at Discharge Functional status at discharge: independent ambulation Overall status at discharge: patient is progressing back to baseline Mental Status: mental status grossly normal Speech and Movement: speech and movement normal Mood: congruent mood Affect: normal affect Quality:SDOH Health Related Social Needs: No Data to Display Exam Narrative Exam Narrative: Patient is awake and alert, lying comfortably in bed. Const General: cooperative and comfortable Nutritional Appearance: overweight Resp Auscultation: clear to auscultation bilaterally Cardio Rate: regular rate and not tachycardic Rhythm: regular rhythm Psych Appearance: grossly normal Mental Status: mental status grossly normal Speech and Movement: speech and movement normal Mood: congruent mood Affect: normal affect DS: Data Vitals/I&O Vitals and I&O: Vital Signs Temperature 36.4 C L 05/19/24 07:30 Temperature Source Temporal Artery Scan 05/19/24 07:30 Pulse 73 05/19/24 07:30 Pulse 71 05/18/24 16:15 Respiratory Rate 16 05/19/24 07:30 Blood Pressure 100/62 05/19/24 07:30 Blood Pressure Mean 74 05/18/24 16:15 Blood Pressure Position Sitting 05/18/24 10:20 Pulse Oximetry 98 05/19/24 07:30 Respiratory End-tidal CO2 34 05/18/24 16:15 Oxygen Delivery Method Room Air 05/19/24 07:30 Oxygen Flow Rate 0 05/19/24 07:30 Pain Level 0 02/12/25 21:08 Intake & Output 05/18/24 05/18/24 05/19/24 11:59 23:59 11:59 Intake Total 2099 Balance 2099 Weight 92.986 kg 92.986 kg Intake: IV 2099 Other: Urine Color Yellow Urine Appearance Clear Urine Odor Normal Emesis Description None Data Completed and Pending Pending studies at discharge: H. pylori fecal antigen Labs on day of discharge: Labs from last 24 hours 05/19/24 05/18/24 05/18/24 06:10 13: 11:25 WBC 8.48 RBC 4.78 Hgb 8.3 L 8.1 L 9.6 L Hct 27.9 L 33.5 L MCV 70 L MCH 20.1 L MCHC 28.7 L RDW 17.7 H Plt Count 321 MPV 10.4 Immature Gran % 0.4 Neutrophils % 73.8 Lymphocytes % 19.9 Monocytes % 5.0 Eosinophils % 0.5 Basophils % 0.4 Nucleated RBC % 0.0 Absolute Neutrophils 6.27 Absolute Lymphocytes 1.69 Absolute Monocytes 0.42 Absolute Eosinophils 0.04 Absolute Basophils 0.03 RBC Morphology See Below Poikilocytosis 1+ Microcytosis 2+ Sodium 140 Potassium 3.9 Chloride 105 Carbon Dioxide 26.3 Anion Gap 8.7 BUN 12 Creatinine 0.8 Est GFR (CKD-EPI 2020) 96.66 Glucose 94 Calcium 9.2 Magnesium 2.1 Total Bilirubin 0.31 AST 17 ALT 26 Alkaline Phosphatase 88 Troponin I < 4 Total Protein 8.4 H Albumin 4.2 Lipase 38 Urine Color Urine Clarity Urine pH Ur Specific [place] Urine Protein Urine Ketones Urine Blood Urine Nitrite Urine Bilirubin Urine Urobilinogen Ur Leukocyte Esterase Urine Glucose 05/18/24 10:40 WBC RBC Hgb Hct MCV MCH MCHC RDW Plt Count MPV Immature Gran % Neutrophils % Lymphocytes % Monocytes % Eosinophils % Basophils % Nucleated RBC % Absolute Neutrophils Absolute Lymphocytes Absolute Monocytes Absolute Eosinophils Absolute Basophils RBC Morphology Poikilocytosis Microcytosis Sodium Potassium Chloride Carbon Dioxide Anion Gap BUN Creatinine Est GFR (CKD-EPI 2020) Glucose Calcium Magnesium Total Bilirubin AST ALT Alkaline Phosphatase Troponin I Total Protein Albumin Lipase Urine Color Yellow Urine Clarity Clear Urine pH 5.5 Ur Specific [place] >= 1.030 H Urine Protein Negative Urine Ketones Negative Urine Blood Negative Urine Nitrite Negative Urine Bilirubin Negative Urine Urobilinogen 0.2 Ur Leukocyte Esterase Negative Urine Glucose Negative PFSH All Active Problems Peptic ulcer disease (Chronic) Social History Smoking/Tobacco Use Status: Never Smoking risk assessment performed?: Yes Alcohol Intake: never Drug use: Never Substance use type: does not use Housing: house Do you feel safe at home: Yes Do you feel safe in your relationship?: Yes Time Spent with Patient Time Spent with Patient: <45 minutes Time was spent: preparing to see the patient(eg.review tests), obtaining and/or reviewing separately otained hiistory, ordering medications,tests, procedures and counseling the patient
[2024-05-19] MEDS: Budesonide/Formoterol 160/4.5 6 GM 60 PUFF INH IH (10:05)
--- NOTE | 2024-05-19 11:31 | PDOC.CMPRO ---
Date of service: 05/19/24 Time of Service: 11:31 Care Management Progress Note Progress Note Text Progress Note Text: Jodee was admitted on 05/18/24 for an endoscopy. A bleeding ulcer was found and clipped. She did well post-procedure and was discharged home this morning. She will follow up with surgical services in about 2 weeks. Social Determinants of Health Screening Social Determinants of Health last assessed: 05/19/24 Will the Patient Participate in the Screening?: Yes Do you worry about having a steady place to live?: no Problems where you live: no known problems In the past 12 months, have you had to go without electric, gas, oil or water in your home?: no Have you or anyone in your house had to go without enough food to eat?: no Has lack of transportation kept you from medical appointments or from doing things needed for daily living?: no Has anyone in your life made you feel unsafe or unsupported?: no How hard is it for you to pay for the very basics like food, housing, medical care, and heating? Would you say it is:: Not hard at all Do you want help finding or keeping work or a job?: I do not need or want help If for any reason you need help with day-to-day activities such as bathing, preparing meals, shopping, managing finances, etc., do you get the help you need?: I don?t need any help How often do you feel lonely or isolated from those around you?: Never Do you speak a language other than [place] at home?: No
[2024-05-20 13:53] LABS: Helicobacter pylori Ag, Feces Negative (Negative)
== END 2024-05-19 11:22 | disposition home or self-care (01) ==
LOC: ER 14:40 → DSU 14:54 → MS 16:58
PROVIDERS: Admitting Provider Surgery; Emergency Provider Physician Assistant; PCP Nurse Practitioner Family; Responsible Provider Surgery; Visit Provider Surgery
PROC: 0DJ68ZZ Inspection of Stomach, Via Natural or Artificial Opening Endoscopic (ICD-10-PCS; CPT 43235; principal; 2024-05-18 14:45)
DX: K25.4 Chronic or unspecified gastric ulcer with hemorrhage (principal); K21.9 Gastro-esophageal reflux disease without esophagitis; K31.7 Polyp of stomach and duodenum; Z80.0 Family history of malignant neoplasm of digestive organs
CPT/HCPCS: 43255; 36415; 76770; 80053; 83690; 87338; 94640; 96361; 96365; 96375; 96376; 99222; 99238; 99285; 76700; 81003; 83735; 84484; 85014; 85018; 85025; J0131; J1885; J2003; J2405; J2470; J2704

== ENCOUNTER 2024-09-23 10:43 | Day surgery (SDC) | payer BC, SELFPAY ==
--- NOTE | 2024-09-22 20:09 | PDOC.DSDIS_ITS ---
Date of service: 09/23/24 Discharge Plan Disposition Patient Disposition: Home Condition: Good Discharge Details Reason For Visit: EGD Attending Provider: Juan Peña Primary Care Provider: Titi Pierson Home Meds and New Rx's Prescriptions: New esomeprazole magnesium [Nexium] 20 mg capsule,delayed release(DR/EC) 20 mg PO DAILY Qty: 30 3RF Rx Instructions: Take 1 tablet by mouth daily Continued methylphenidate HCl [Relexxii] 36 mg tablet extended release 24hr 36 mg PO DAILY sucralfate 1 gram tablet 1 g PO QACHS Qty: 80 2RF acyclovir 400 mg tablet 400 mg PO BID albuterol sulfate 90 mcg/actuation aerosol powdr breath activated 2 inh inhalation Q4H PRN fluticasone propion-salmeterol 232-14 mcg/actuation aero powdr breath act w/sensor 2 inh inhalation BID [id number]-algal oil [Foltanx RF] 3 mg-35 mg-2 mg -90.314 mg capsule 1 cap PO ONCE magnesium oxide 500 mg capsule 500 mg PO DAILY montelukast [Singulair] 10 mg tablet 10 mg PO DAILY Ubrelvy 100 mg tablet 100 mg PO ONCE PRN Rx Instructions: as a single dose acetaminophen 500 mg Tablet 1,000 mg PO Q8H Qty: 30 0RF cetirizine [All Day Allergy (cetirizine)] 10 mg tablet 10 mg PO BID ondansetron 4 mg tablet,disintegrating 4 mg PO Q6H PRN Discontinued pantoprazole [Protonix] 40 mg tablet,delayed release (DR/EC) 40 mg PO BID 90 Days Qty: 180 1RF Discharge Instructions Additional Instructions: Jodee, it was good seeing you again today, and I hope you feel well after the procedure. The area where your previous ulcer was located looks to be healed very nicely, and I do not see any changes here that are concerning for any type of tumors or cancers. As noted on your previous endoscopy, you do with multiple polyps in your stomach. The modern recommendation is to remove polyps in excess of 1 cm. I would estimate your largest polyps to be about three quarters of a centimeter to 1 cm in size. I removed these today. I will send these all off for testing. Once I know the nature of these polyps, I will be in touch with other recommendations. In the meantime, as we discussed, I will switch you over from pantoprazole to esomeprazole, or Nexium. I put the prescription in today. Pick it up at your convenience. Is not an emergency. Your colonoscopy is totally normal. There are no polyps, tumors, or anything at all worrisome. With your family history, would recommend a 5-year interval for screening colonoscopies. 1. If tolerated, consume a soft, low fiber diet for 1-2 days. 2. Do not drive, drink alcohol, operate machinery, make critical decisions, or do activities that require coordination or balance for 24 hours. 3. Because air was put into your colon during the procedure, expelling air from your rectum (passing gas or farting) is normal. 4. You may not have a bowel movement for 1-3 days because of the colonoscopy prep. This is normal. 5. You may experience a sore throat for 24 to 48 hours. You may use throat l ozenges or gargle with warm salt water to relieve the discomfort. 6. Because air was put into your stomach during the procedure, you may experience some belching. 7. Go directly to the emergency room if you notice any of the following: Develop chills (warm to touch), or if you have a thermometer and your temperature is above 101 Difficulty breathing or difficultly swallowing Persistent vomiting Severe abdominal pain, other than gas cramps Severe chest pain Black, tarry stools Any bleeding ? exceeding one tablespoon 8. Call your physician if the site where your intravenous was started becomes red, swollen, painful, and warm to touch. 9. Your physician has reviewed your pre-procedure medications. Please continue to take those medications as previously ordered. You will be given specific information/education regarding any changes to your medications before leaving. Activity:: Activity as Tolerated Diet:: As Tolerated Discharge Orders Discharge Orders: Discharge Order (Routine); Ordered 09/22/24 Ordered By: Juan Peña DS: Diagnosis Discharge Diagnosis (1) Peptic ulcer disease: Status: Chronic Asessment and Plan: Follow-up on polypectomy results
--- NOTE | 2024-09-22 20:14 | ENDO_ITS ---
Date of service: 09/23/24 Time of Service: 13:09 Endoscopy Report DATE OF PROCEDURE: 09/23/24 PRE-OP DIAGNOSIS: peptic ulcer disease POST-OP DIAGNOSIS: other (Gastric polyps) PROCEDURE: EGD with polypectomy SURGEON: Juan Peña ANESTHESIA TYPE: General:No Airway ESTIMATED BLOOD LOSS: 10 PATHOLOGY: other (Multiple gastric polyps) COMPLICATIONS: None DISPOSITION: same day INDICATIONS: Jodee is a 39 year old woman with a history of bleeding peptic ulcer disease. She needs a follow up EGD to rule out malignancy. She also has an extensive family history of colon cancer, needs a screening colonoscopy. PREP: Miralax/Dulcolax PROCEDURE START TIME: 12:16 PROCEDURE END TIME: 12:45 COLONOSCOPY RETRACTION TIME: 6 FINDINGS: Normal-appearing Z-line at the GE junction measuring 37 cm beyond the incisors; multiple fundic gland polyps; healed gastric ulcer; negative screening co lonoscopy PROCEDURE DESCRIPTION: After the initiation of anesthesia, and with the assistance of a bite block, I advanced a standard gastroscope through the mouth past the hypopharynx and into the esophagus.? I advanced down the esophagus to the GE junction. The upper and midesophagus were normal-appearing. There were a few specks of plaque at the distal esophagus just above the Z-line, which was regular and normal-appearing at the GE junction around 37 cm beyond the incisors. I advanced down into the stomach and insufflated into the rugae were obliterated. I performed retroflexion. There is no evidence of any hiatal hernia. There were multiple polyps in the gastric cardia extending down to the incisura angularis. The antrum is spared. There are 2 clips from the previous endoscopy. The tissue all around the clips is totally normal and healthy. I do not see any evidence of irritation, inflammation, or ulceration. I have no concern for malignancy at the previous ulceration site. There are few polyps that appear to approach 1 cm in size. I removed these with a combination of cold, and energize snare polypectomy. None of these polyps would pass through the scope, and all required manual retrieval. This required several passes of the scope. The duodenum was totally normal and healthy, and there was no evidence of any du odenitis, or celiac disease. I then brought the camera back up to the GE junction, perform some biopsies of the distal esophagus using cold forceps. There was minimal bleeding. The stomach was then completely emptied, and the camera was brought back out along the length of the esophagus 1 last time. No other abnormalities were appreciated. We then rolled Jodee into the left lateral decubitus position. Great care was taken to ensure that she was padded and supported appropriately. I began by performing an external anorectal exam.? Perineum and skin were normal, as was the anal verge.?Next, I performed a digital rectal exam.? I did not appreciate any abnormal findings.? Next, I advanced a colonoscope into the rectal vault.? I performed retroflexion.? This appeared normal.? Using insufflation, I then advanced the colonoscope beyond the rectal folds and into the sigmoid colon before advancing towards the cecum.? The quality of the prep was adequate.? The scope was noted to be in the cecum by identification of the ileocecal valve and appendiceal orifice.? I then began withdrawing the colonoscope using repeated irrigation as necessary for full evaluation of the colonic mucosa. ?Once the scope was withdrawn to the level of the rectum, great care was taken to examine portions of the rectal folds.? I saw no signs of tumors, polyps, or any other pathology in the colon. Finally, the scope was withdrawn and the patient was brought to the same-day surgery recovery unit as the anesthetic wore off. ?The findings and instructions were shared with the patient prior to discharge.
[2024-09-23 10:45] VITALS: BP 115/85; PULSE 87; RESP 18; TEMP 35.8; O2SAT 100
[2024-09-23] MEDS: Lactated Ringers 1,000 ML 80 ML IV (11:20)
--- NOTE | 2024-09-23 12:07 | W.ANESPRE ---
General Info Date of Service Date Performed: 09/23/24 Height: 5 ft 4 in Weight: 91.3 kg Body Mass Index (BMI): 34.5 Surgical Procedure: Operation Date: 09/23/24 12:05 Proposed Procedure Side Surgeon p Colonoscopy/Gastroscopy Juan Peña MD Actual Procedure Side Surgeon p Colonoscopy/Gastroscopy Not Applicable Juan Peña MD Pre-Op Diagnosis Post-Op Diagnosis Hx of gastric ulcers Hx of polyps Meds Allergies and Home Medications Allergies Allergy/AdvReac Type Severity Reaction Status Date / Time sumatriptan (From Imitrex) AdvReac Intermediate Other (See Verified 09/23/24 11:04 Comment) Home Medication ?Medication ?Instructions ?Recorded acyclovir 400 mg tablet 400 mg PO BID 05/18/24 albuterol sulfate 90 mcg/actuation 2 inh inhalation Q4H PRN 05/18/24 breath activated powder inhaler fluticasone 232mcg-salmeterol 2 inh inhalation BID 05/18/24 14mcg/actuation breath act,powder sensor levomefolate Ca 3 mg-B6 35 1 cap PO ONCE 05/18/24 mg-meB12 2 mg-algal oil 90.314 mg capsule (Foltanx RF) magnesium oxide 500 mg capsule 500 mg PO DAILY 05/18/24 montelukast 10 mg tablet 10 mg PO DAILY 05/18/24 (Singulair) ubrogepant 100 mg tablet (Ubrelvy) 100 mg PO ONCE PRN 05/18/24 acetaminophen 500 mg tablet 1,000 mg (2 x 500 mg) PO Q8H #30 05/19/24 tabs sucralfate 1 gram tablet 1 g PO QACHS #80 tabs 05/20/24 pantoprazole 40 mg tablet,delayed 40 mg PO BID 3 months #180 tabs 07/01/24 release (Protonix) cetirizine 10 mg tablet (All Day 10 mg PO BID 09/15/24 Allergy (cetirizine)) methylphenidate HCl 36 mg 36 mg PO DAILY 09/15/24 tablet,extended release 24 hr (Relexxii) ondansetron 4 mg disintegrating 4 mg PO Q6H PRN 09/15/24 tablet Current Visit Medications: Current Medications Generic Name Dose Route Start Last Admin Trade Name Freq PRN Reason Stop Dose Admin Ringer's Solution 1,000 mls @ 80 mls/hr 09/23/24 06:00 09/23/24 11:20 IV 09/23/24 23:59 80 mls/hr INFUSION ADWOA Administration IV Miscellaneous Supplies 1 each 09/23/24 06:00 Iv Access IV 09/23/24 23:59 DIRECTED ADWOA Ondansetron HCl 4 mg 09/22/24 20:15 Ondansetron 4 Mg/2 Ml Vial IVP 10/22/24 20:14 Q4H PRN PRN Nausea / Vomiting Sodium Chloride 0 ml 09/23/24 06:00 Normal Saline Flush 10 Ml Syr IV 09/23/24 23:59 PRN PRN Sodium Chloride 0 ml 09/23/24 06:00 Normal Saline 10 Ml Vial IJ 09/23/24 23:59 DIRECTED PRN Sterile Water 0 ml 09/23/24 06:00 Water,Injection,Sterile 10 Ml Vial IJ 09/23/24 23:59 DIRECTED PRN PFSH Active Problems Active Problems: Problem Status Onset Code Biliary dyskinesia Acute K82.8 Peptic ulcer disease Chronic K27.9 Medical History Medical History Family history of malignant hyperthermia maternal grandmother-pt. has not been tested Surgical History Surgical History History of liver biopsy Hx of section x3 History of esophagogastroduodenoscopy (EGD) (~05/18/24) Tobacco Smoking/Tobacco Use Status: Never Alcohol Alcohol Intake: never Substance Use Substance use: Never Substance use type: does not use Vital Signs and Lab Results Vital Signs Most Recent Vital Signs in EMR: Most Recent Vital Signs Temp Pulse Resp BP Pulse Ox 35.8 C L 87 18 115/85 100 09/23/24 10:45 09/23/24 10:45 09/23/24 10:45 09/23/24 10:45 09/23/24 10:45 Point of Care Results Point of Care Results: POC- Test(urine) Negative 09/23/24 11:10 Anesthesia Assessment and Plan Anesthesia History Personal History: No History of Anesthesia Complications Family History: Malignant Hyperthermia Exercise Tolerance Exercise Tolerance: Metabolic Equivalents>4 Pertinent Negatives Pertinent Negatives: No Major Cardiovascular Symptoms or Complaints and No History of CVA/TIA Cardiac & Pulmonary Exam Cardiac Exam: Normal S1/S2 Heart Sounds Pulmonary Exam: Clear Bilateral Breath Sounds Implantable Cardiac Device Does patient have a Pacemaker or an ICD?: No Airway Exam Known Difficult Airway: No Mallampati Class: 3 Mouth Opening: Normal (> 3cm) Thyromental Distance: Greater than 3 cm Neck Range of Motion: Limited ROM Neck Circumference: Normal Teeth Condition: Normal Dentition ASA Classification ASA Score: ASA 2 Emergency Case?: No NPO Status NPO Status: NPO Clears >2 hours, Solids >8 hours Status Status: Negative HCG Anesthesia Plan Resuscitation Status: Full Code Anesthesia Technique: General Anesthesia Airway Planned: Natural Airway Monitors Used: Standard Monitors
[2024-09-23 12:08] VITALS: BMI 34.5
--- NOTE | 2024-09-23 12:21 | STOM_PTH ---
PATIENT: Jodee Irwin LOC: [facility] U#:[id number] AGE/SX: 39/F ROOM: RE09/23/[address]: Juan Peña MD : 1985 BED: DIS: 09/23/2024 SPEC #: [id number] RECD: 09/23/24 16:42 STATUS: JASS RE #: [id number] RAUL: 09/23/24 12:[address]: Juan Peña DEPT: Surgical Specimen RECD BY: Leela Duran ENTERED: 09/23/24 16:42 SP TYPE: STOMACH OTHR DR: Titi Pierson Tissues: 1 - STOMACH BIOPSY 2 - ESOPHAGUS BIOPSY Procedures: GROSS AND MICRO LEVEL 4 Comments:
[2024-09-23 12:53] VITALS: BP 111/81; PULSE 97; RESP 20; TEMP 36.1; O2SAT 98
[2024-09-23 13:20] VITALS: BP 104/78; PULSE 86; RESP 16; TEMP 36; O2SAT 99
--- NOTE | 2024-09-23 13:48 | W.ANESPOSTOP ---
Postoperative Evaluation Date, Time and Location Date Performed: 09/23/24 Time Performed: 13:48 Patient Location: Day Surgery Unit Vital Signs Most Recent Imported Vital Signs: Most Recent Vital Signs Temp Pulse Resp BP Pulse Ox 36.1 C L 97 H 20 111/81 98 09/23/24 12:53 09/23/24 12:53 09/23/24 12:53 09/23/24 12:53 09/23/24 12:53 Pain Score Most Recent Pain Score: Most Recent Pain Score Pain Level 0 09/23/24 12:53 Assessment Mental Status: Awake (Alert & Oriented to Patient Baseline) Airway and Respiratory Function: Patent airway with normal (patient baseline) respiratory exam Cardiovascular Function: Hemodynamically Stable Hydration Status: Adequately Hydrated Nausea & Vomiting: No Nausea or Vomiting Pain: Pt. Denies Any Pain Peripheral Nerve Block: Patient did not receive a nerve block
== END 2024-09-23 13:40 | disposition home or self-care (01) ==
LOC: SUR 10:43
PROVIDERS: PCP Nurse Practitioner Family; Visit Provider Surgery
PROC: (CPT 43239; principal; 2024-09-23 12:00)
DX: K27.9 Peptic ulcer, site unspecified, unspecified as acute or chronic, without hemorrhage or perforation (principal); K31.7 Polyp of stomach and duodenum; Z12.11 Encounter for screening for malignant neoplasm of colon; Z80.0 Family history of malignant neoplasm of digestive organs; G37.81 Myelin oligodendrocyte glycoprotein antibody disease
CPT/HCPCS: 43239; 45378; 88305; J0131; J1885; J2704